=== PATIENT | male | born 1965 | race Hispanic/Latino ===

== ENCOUNTER 2019-04-27 21:07 | Emergency (ER) | payer MEDICAID, SELFPAY ==
[2019-04-27 21:09] VITALS: BP 155/106; PULSE 101; RESP 16; TEMP 36.4; O2SAT 98; BMI 34.9
--- NOTE | 2019-04-27 23:06 | ED.DCSUM_ITS ---
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 He went to [place] over the weekend and was doing a lot of walking. He states he continued to have back pain while there. He then drove home today and has increased back pain after sitting in the car all day. He denies any direct trauma or fall. He had no fever or chills. He has chronic paresthesias in his feet secondary to neuropathy. He denies pain radiating to his legs. - Past Medical History (1) Diabetes Status: Acute (2) High cholesterol Status: Acute (3) Neuropathy Status: Acute Past Medical History - Allergies and Home Meds Allergies/Adverse Reactions: Allergies No Known Allergies Allergy (Verified 04/27/19 21:11) Primary Care Physician: Jose Tapia MD [Primary Care Provider] - Prior records reviewed: Yes Past Medical History: - - Reviewed Lives: Spouse/ Significant Other Smoking Status: Never smoker Review of Systems General: Denies: Chills, Fever Cardiovascular: Denies: Chest pain Respiratory: Denies: Dyspnea, Cough Gastrointestinal: Denies: Abdominal pain, Nausea, Vomiting Genitourinary: Denies: Dysuria, Hematuria, Frequency Musculoskeletal: Reports: Back pain Neurological: Reports: - - Chronic paresthesias secondary to neuropathy, unchanged from baseline.. Denies: Weakness Physical Exam Vital Signs/Narrative: Vital Signs Temp Pulse Resp BP Pulse Ox 04/27/19 21:09 97.6 F L 101 H 16 155/106 H 98 General: Well nourished, Well developed ENT: Moist mucous membranes Cardiovascular: Regular rate, Regular rhythm Respiratory: No distress, CTA bilaterally Abdomen: Soft, Nontender, Normal bowel sounds Back: - - Mild tenderness palpation in the low lumbar midline and paraspinal region. Extremities: Nontender, No edema Skin: Normal color Neurological: Alert, Oriented x3, Normal Sensation, - - 1+ bilateral patellar reflexes. Strong distal pulses. Psychological: Normal affect Diagnostic/Tx/Re-eval - Medical Decision Making Patient has been taking naproxen for his back pain. With his history of diabetes I do not want to continue higher dose NSAIDs. He will be given a prescription for Hendrum as well as Flexeril to help with his spasm. He drove himself to the emergency room so prescriptions will be filled and he will take it upon returning home. He was warned about the sedating side effects. ED Disposition - Plan for ED Patient: Disposition: Home or Assisted Living Diagnosis: Lumbar strain Instructions: Back Sprain/Strain Prescriptions: cycloBENZAPRine HCl [Flexeril] 10 mg PO TID PRN #20 tablet PRN Reason: Muscle Spasm Hydrocodone Bitart/Apap 5-325 [Hendrum 5MG-325MG] 1 tablet PO Q6H PRN PRN 3 Days #10 tablet PRN Reason: Pain Referrals: Jose Tapia MD [Primary Care Provider] - 5-7 Days
== END 2019-04-27 23:53 | disposition home or self-care (01) ==
PROVIDERS: Emergency Provider Emergency Medicine; Family Provider Family Medicine; PCP Family Medicine
DX: S39.012A Strain of muscle, fascia and tendon of lower back, initial encounter (principal); X58.XXXA Exposure to other specified factors, initial encounter; Y93.9 Activity, unspecified; Y92.9 Unspecified place or not applicable; Y99.9 Unspecified external cause status; E10.40 Type 1 diabetes mellitus with diabetic neuropathy, unspecified; E78.00 Pure hypercholesterolemia, unspecified; Z79.84 Long term (current) use of oral hypoglycemic drugs; Z79.899 Other long term (current) drug therapy
CPT/HCPCS: 99282

== ENCOUNTER → 2019-05-01 12:24 | Outpatient (CLI) | payer MEDICAID, SELFPAY ==
[2019-04-27 21:09] VITALS: BMI 34.9
[2019-05-01 13:54] LABS: Absolute Lymphocyte Count 1.93 X10^3/uL (0.83-4.51); Absolute Neutrophil Count 5.8 X10^3/uL (2.0-7.7); Basophil# 0.05 X10^3/uL; Basophil% 0.6 % (0-1); Eosinophil# 0.08 X10^3/uL; Eosinophils% 0.9 % (0-5); Hematocrit 52.3 % (40-54); Hemoglobin 17.3 g/dL (13.0-16.5); Lymphocyte # 1.93 X10^3/ul (4.0); Lymphocyte % 22.7 % (19-41); Mean Corp Hgb Conc 33.1 g/dL (32-36); Mean Corpuscular Volume 84.6 fL (80-94); Mean Platelet Vol. 10.9 fl (6.2-12.0); Monocyte# 0.58 X10^3/uL; Monocyte% 6.8 % (0-10); NRBC Flagged by Analyzer 0 % (0-5); Neutrophil # 5.82 X10^3/uL (2.7-7.7); Neutrophil % 68.5 % (47-70); Platelet Count 239 K/mm3 (150-450); RBC Distribution Width CV 12.9 % (11.6-14.6); RBC Distribution Width SD 39.3 fl (35.1-43.9); Red Blood Count 6.18 M/mm3 (4.6-6.2); White Blood Count 8.5 K/mm3 (4.4-11.0)
[2019-05-01 14:33] LABS: ALB/GLOB Ratio 1.1 RATIO (0.9-2.4); AST(SGOT) 48 U/L (15-37); Alanine Aminotransfer ALT/SGPT 53 U/L (16-61); Albumin, Serum 4.2 g/dL (3.2-5.0); Alkaline Phosphatase 114 U/L (45-117); Anion Gap 9 (5-15); BUN 18 mg/dL (7-18); BUN/Creat Ratio 16.8 RATIO (10-20); Calcium,Total 9.6 mg/dL (8.5-10.1); Chloride 100 mmol/L (98-107); Creatinine, Serum 1.07 mg/dL (0.70-1.30); EST Glomerular Filtration Rate 76 mL/min (>60); Est Glom Filt Rate - Afr Amer 92 mL/min (>60); Globulin 3.8 g/dL (2.2-4.2); Glucose 282 mg/dL (74-106); Potassium 4.3 mmol/L (3.5-5.1); Sodium Level 134 mmol/L (136-145)
== END ==
PROVIDERS: Family Provider Family Medicine; PCP Family Medicine; Referring Provider Family Medicine; Visit Provider Family Medicine
DX: E11.40 Type 2 diabetes mellitus with diabetic neuropathy, unspecified (principal); E11.65 Type 2 diabetes mellitus with hyperglycemia
CPT/HCPCS: 36415; 80053; 85025